=== PATIENT | female | born 1970 | race Caucasian/White ===

== ENCOUNTER 2025-04-21 22:58 | Observation (INO) | payer OTHER, SELFPAY ==
[2025-04-21 17:42] VITALS: BP 170/110
[2025-04-21 18:07] LABS: Hematocrit 44.1 % (37.0-47.0); Hemoglobin 14.8 g/dL (12.0-16.0); Mean Corp Hgb Conc. 33.6 g/dL (33.0-37.0); Mean Corpuscular Volume 92.6 fL (81.0-99.0); Nucleated Red Blood Cells % 0 %; Platelet Count 285 10^3/uL (130-400); Red Cell Dist. Width 12.6 % (11.5-14.5)
[2025-04-21 18:19] LABS: ALT (SGPT) 37 U/L (0-35); AST (SGOT) 39 U/L (14-36); Albumin 4.6 g/dl (3.5-5.0); Alkaline Phosphatase 66 U/L (38-126); Blood Urea Nitrogen 17 mg/dl (7-17); Calcium 9.7 mg/dl (8.4-10.2); Carbon Dioxide 30 mmol/L (22-30); Chloride 105 mmol/L (98-107); Glucose 91 mg/dl (70-99); Potassium 3.3 mmol/L (3.5-5.1); Sodium 140 mmol/L (135-145); Total Protein 7.3 g/dl (6.3-8.2); eGFR > 60.00
[2025-04-21 18:32] LABS: Troponin I 0.037 ng/ml
[2025-04-21 19:22] VITALS: BP 158/96
[2025-04-21 19:23] VITALS: BMI 24.0
[2025-04-21 20:00] VITALS: BP 150/104
--- NOTE | 2025-04-21 20:18 | ED.GENMED ---
History of Present Illness
<Yonny Gresham DO - Last Filed: 04/21/25 20:20>
General
Chief Complaint: Heart Rate Problem
Time Seen by Provider: 04/21/25 19:05
<Kaitlyn Marks PA-C - Last Filed: 04/22/25 00:54>
General
Source: patient and family
Exam Limitations: none
History of Present Illness
History of Present Illness:
Patient is a 55-year-old female with past medical history of hypertension, on lisinopril in the past but stopped it on her own a few months ago, who presents to the emergency department accompanied by her mother for evaluation of palpitations and
tachycardia. Patient reports that she works outside at [employer]. She reports that she was at work around 415 and was standing but not exerting herself when she developed sudden onset of palpitations. Patient checked her smart watch and
it indicated that her heart rate was between 180 and 190 bpm. Patient thought that her symptoms would resolve so she waited a while but eventually called her mother who came to pick her up and bring her to the emergency department. Patient reports
that on arrival to the emergency department, they hooked her up to the EKG machine and she suddenly felt better. She denies any palpitations currently. Patient reports that her heart rate was in the 180s to 190s for approximately 2 hours. Patient
reports that she has had a similar episode a few years ago. She states that she did see a devulcanizer tender and wore a Holter monitor. She believes that they told her that she did have SVT. Patient reports that she did have some bilateral shoulder
pain during the episode which is now resolved. Patient denies that she ever had chest pain or shortness of breath. Patient denies any abdominal pain, nausea, vomiting. Patient denies any recent lower extremity edema. Patient admits that she does
drink a lot of coffee a day, she reports that this was unchanged today. Patient denies that she drank alcohol today. Patient denies that she was exerting herself today but states that she has been under an increased amount of stress lately.
Past History
<Kaitlyn Marks PA-C - Last Filed: 04/22/25 00:54>
Past History
ED Past Medical History: HTN
ED Past Surgical History: None
Social History
Tobacco: Non-smoker
Alcohol: Daily
Drug: None
Review of Systems
<Kaitlyn Marks PA-C - Last Filed: 04/22/25 00:54>
Review of Systems
Allergies reviewed?: Yes
All Other Systems: ROS reviewed and negative except as documented in HPI and ROS
Constitutional: Reports no symptoms
EENT: Reports no symptoms
Respiratory: Reports no symptoms
Cardiac: Reports palpitations
ABD/GI: Reports no symptoms
: Reports no symptoms
Musculoskeletal: Reports no symptoms
Skin: Reports no symptoms
Neurological: Reports no symptoms
Endocrine: Reports no symptoms
Hematologic/Lymphatic: Reports no symptoms
Psychiatric: Reports no symptoms
Phy Exam
<Kaitlyn Marks PA-C - Last Filed: 04/22/25 00:54>
General Physical Exam
General Presentation: well appearing and no apparent distress
General Skin: warm and dry
General Habitus: normal
General Mental: alert
General Hydration: appears well hydrated
ENT Exam
ENT Exam: EOMI, pharynx normal, neck supple and normocephalic
Eye Exam
Eye Exam: PERRL, cornea clear and conjunctiva normal
Cardiovascular Exam
Cardiovascular Exam: regular rate/rhythm, no edema, no murmur and normal peripheral pulses
Pulmonary Exam
Pulmonary Exam: lungs clear, no respiratory distress, no rales, no crackles, no rhonchi, no stridor, no wheezing and no cough
Gastrointestinal Exam
Gastrointestinal Exam: normal bowel sounds, non tender, soft, no organomegaly, no pulsatile mass and non distended
Neurological Exam
Neurological Exam: alert, oriented x3, no motor deficits and speech normal
Musculoskeletal Exam
Musculoskeletal Exam: full ROM and no edema
Skin Exam
Skin Exam: normal color, warm/dry, no rash and no petechia
Psychiatric Exam
Psychiatric Exam: normal mood/affect
Course
<Yonny Gresham, DO - Last Filed: 04/21/25 20:20>
Orders/Labs/Results
Orders:
Orders
04/21/25 17:43
EKG [Electrocardiogram (*1)] Urgent
Reason for Study: Tachycardia
EKG- Treatment ONCE
04/21/25 17:53
Complete Blood Count/With Diff Urgent
Comprehensive Metabolic Panel Urgent
Troponin I Urgent
04/21/25 20:06
Potassium Chloride [KCl] 40 meq PO NOW STA
CR Chest - 2 Views Urgent
Comment:
Reason For Exam: palpitations
04/21/25 20:59
Troponin I Urgent
04/21/25 22:58
Admit/Transfer Patient As Directed
Co-Sign Provider:
Level of Care: Observation services
Assign to:: Telemetry
Physician / Group: melinda waters
Diagnosis: palpitaton
Reason for Telemetry: Arrhythmia
Date to Stop Telemetry: 04/24/25
Time to Stop Telemetry: 11:00
04/21/25 22:59
Code Status As Directed
Resuscitation Status: Full Code
PRN Pain Medication Management As Directed
May give lesser potent ordered pain med per pt: Yes
preference::
Protocol:: Medication orders for pain may be administered in a
manner that supports deferring to patient preference
when the pt is:
- Requesting an ordered lesser potent pain medication.
Least to most potent pain medications are defined
as: acetaminophen < NSAID < tramadol < opioids
(morphine, oxycodone, hydromorphone).
- Requesting a lesser dose of the same medication IF
ORDERED.
- Requesting a less intrusive route of administration
if both routes are prescribed by the provider (PO <
IV).
04/21/25 23:03
Lisinopril [Zestril] 10 mg PO NOW STA
04/21/25 23:08
HYDROmorphone [Dilaudid] 0.5 mg IV Q4HPRN PRN
04/21/25 23:52
Troponin I Q4H
04/24/25 11:00
DC Protocol for Telemetry ONCE
Abnormal Lab Results
04/21/25 04/21/25 04/21/25
17:53 20:59 23:52
MCH 31.1 H pg
(27.0-31.0)
Potassium 3.3 L mmol/L
(3.5-5.1)
AST 39 H U/L
(14-36)
ALT 37 H U/L
(0-35)
Troponin I 0.037 H* ng/ml 0.087 H* D ng/ml 0.098 H* ng/ml
04/21/25 17:53
04/21/25 17:53
Vital Signs
Initial and Last Documented VS:
Initial Vital Signs
Temp Pulse Resp BP Pulse Ox
98.2 F 159 18 170/110 98
04/21/25 17:42 04/21/25 17:42 04/21/25 17:42 04/21/25 17:42 04/21/25 17:42
Last Documented Vital Signs
Temp Pulse Resp BP Pulse Ox
98.2 F 72 14 148/101 98
04/21/25 17:42 04/21/25 23:21 04/21/25 22:36 04/21/25 23:21 04/21/25 22:36
<Kaitlyn Marks PA-C - Last Filed: 04/22/25 00:54>
Orders/Labs/Results
Orders:
Orders
04/21/25 17:43
EKG [Electrocardiogram (*1)] Urgent
Reason for Study: Tachycardia
EKG- Treatment ONCE
04/21/25 17:53
Complete Blood Count/With Diff Urgent
Comprehensive Metabolic Panel Urgent
Troponin I Urgent
04/21/25 20:06
Potassium Chloride [KCl] 40 meq PO NOW STA
CR Chest - 2 Views Urgent
Comment:
Reason For Exam: palpitations
04/21/25 20:59
Troponin I Urgent
04/21/25 22:58
Admit/Transfer Patient As Directed
Co-Sign Provider:
Level of Care: Observation services
Assign to:: Telemetry
Physician / Group: melinda waters
Diagnosis: palpitaton
Reason for Telemetry: Arrhythmia
Date to Stop Telemetry: 04/24/25
Time to Stop Telemetry: 11:00
04/21/25 22:59
Code Status As Directed
Resuscitation Status: Full Code
PRN Pain Medication Management As Directed
May give lesser potent ordered pain med per pt: Yes
preference::
Protocol:: Medication orders for pain may be administered in a
manner that supports deferring to patient preference
when the pt is:
- Requesting an ordered lesser potent pain medication.
Least to most potent pain medications are defined
as: acetaminophen < NSAID < tramadol < opioids
(morphine, oxycodone, hydromorphone).
- Requesting a lesser dose of the same medication IF
ORDERED.
- Requesting a less intrusive route of administration
if both routes are prescribed by the provider (PO <
IV).
04/21/25 23:03
Lisinopril [Zestril] 10 mg PO NOW STA
04/21/25 23:08
HYDROmorphone [Dilaudid] 0.5 mg IV Q4HPRN PRN
04/21/25 23:52
Troponin I Q4H
04/24/25 11:00
DC Protocol for Telemetry ONCE
Abnormal Lab Results
04/21/25 04/21/25 04/21/25
17:53 20:59 23:52
MCH 31.1 H pg
(27.0-31.0)
Potassium 3.3 L mmol/L
(3.5-5.1)
AST 39 H U/L
(14-36)
ALT 37 H U/L
(0-35)
Troponin I 0.037 H* ng/ml 0.087 H* D ng/ml 0.098 H* ng/ml
04/21/25 17:53
04/21/25 17:53
Vital Signs
Initial and Last Documented VS:
Initial Vital Signs
Temp Pulse Resp BP Pulse Ox
98.2 F 159 18 170/110 98
04/21/25 17:42 04/21/25 17:42 04/21/25 17:42 04/21/25 17:42 04/21/25 17:42
Last Documented Vital Signs
Temp Pulse Resp BP Pulse Ox
98.2 F 72 14 148/101 98
04/21/25 17:42 04/21/25 23:21 04/21/25 22:36 04/21/25 23:21 04/21/25 22:36
<Yonny Gresham DO - Last Filed: 04/21/25 20:20>
*Pulse Oximetry
SaO2: 99
Oxygen Mode of Delivery: Room air
<Kaitlyn Marks PA-C - Last Filed: 04/22/25 00:54>
*Pulse Oximetry
Patient hypoxic: no
*Critical Care Note
Total Time (30-74mins, 75-104mins- exclusive of procedures): Not Applicable
<Kaitlyn Marks PA-C - Last Filed: 04/22/25 00:54>
Update Note
Update Note:
Patient is 55-year-old female with past medical history of hypertension not currently on medication who presents to the emergency department for evaluation of 2 hours of palpitations with heart rate readings on her smart watch from the 180s to the
190s. On arrival, patient reported improvement in her symptoms once the EKG leads were placed. On arrival, patient's initial heart rate was 156 bpm, she is afebrile. On my examination, the patient is well-appearing, she is in no acute distress,
she has a normal cardiopulmonary exam. EKG was obtained and demonstrates no acute ischemic changes, no evidence of dysrhythmia, no tachycardia. Labs were obtained and are notable for a slightly low potassium of 3.3, this was repleted. The
remainder of the patient's labs are notable for a troponin of 0.037. Chest x-ray was also obtained and demonstrates no acute disease process. Plan was to obtain second troponin. However, this was elevated even further, therefore the patient will
be admitted for continued trending of troponin, telemetry monitoring, and possibly cardiology consultation. All results and plan were discussed with the patient and her mother who expressed understanding and agreed.
ED Attending Note
<Yonny Gresham DO - Last Filed: 04/21/25 20:20>
ED Attending Note
Patient seen and examined by attending physician: Yes
I performed the substantive portion of visit, reviewed & personally made and approve the management plan that is documented in note by myself or JOYCE.: Yes
ED Attending Note:
Seen with PA examined independently sounds like the patient had an episode of SVT resolved spontaneously, is on lisinopril K slightly low troponin is indeterminant will replete her K, repeat her Trop keep her on a monitor consideration for discharge
home beta-makeda calcium channel makeda cardiology follow-up
-
Portions of this chart may have been created with voice recognition software.� Occasional wrong word or��sound alike� substitutions may have occurred due to the inherent limitations of voice recognition software.
Discharge Plan
Departure
Patient Disposition: Admit
Date of Disposition: 04/21/25
Time of Disposition: 22:19
Presentation/result/management discussed w/ accepting MD/DO: Hospitalist
Patient with high blood pressure during this ER visit?: Yes
Condition: Good
Covid-19: Not Applicable
Discharge Problem:
Palpitations, Elevated troponin
Interventions
Interventions:
*Risk Screen - Suicide Last Done: 04/21/25 17:42
*General Assessment Last Done: 04/21/25 17:42
*Neglect/Abuse Screening Last Done: 04/21/25 17:42
*ED COVID-19 Vaccine History Last Done: 04/21/25 17:42
*ED Influenza Vaccine History Last Done: 04/21/25 17:42
[facility] Risk Assessment Tool Last Done: 04/21/25 19:24
ED- Pulmonary Assessment Last Done: 04/21/25 19:24
ED- Cardiac Assessment Last Done: 04/21/25 19:24
[2025-04-21] MEDS: KCL 40 MEQ PO (20:25)
[2025-04-21 21:00] VITALS: BP 152/96
[2025-04-21 21:36] LABS: Troponin I 0.087 ng/ml
[2025-04-21 22:36] VITALS: BP 148/101
--- NOTE | 2025-04-21 22:41 | HPS.HSE ---
Family Physician
-
Family Physician: Magdi Bonilla
Chief Complaint
-
PALPITATION
History of Present Illness
55-year-old female with past medical history of hypertension, on lisinopril in the past but stopped it on her own a months ago, presented to us with palpitation. patient stated she a had cappuccino drink before the event. she drinks lots of coffee
in the morning. Her heart rate on the watch was 180-190 which lasted for 2 hours. denied chest pain, sob. she felt the heart was racing. denied MICHAEL, dizzy or syncope. denied fever, chills,cough, congestion. denied abdominal pain,nv,,d. denied dysuria
or hematuria.
she got better as soon as she got in the ER room.
Admitted for further management
Medical History
Past Medical History
Past Medical History: Reports Other
Additional Past Medical History:
Anxiety hypercholesteremia, hypertension
Past Surgical History: Reports None
Social History
Tobacco: Former Smoker
Alcohol: Daily
Drug: None
Living: With Family
Employment: Employed
Family History
Family History: Not pertinent
Allergies / Home Medications
Allergies reflects when Allergies were last updated in [employer].
Home Medications with original date entered in [employer]
Allergy/Medication List:
Allergies
Allergy/AdvReac Type Severity Reaction Status Date / Time
NKA - No Known Allergies Allergy Uncoded 09/10/07 20:00
Review of Systems
-
Constitutional: Reports No Symptoms
EENT: Reports No Symptoms
Respiratory: Reports No Symptoms
Cardiac: Reports Palpitations
Abdomen/GI: Reports No Symptoms
: Reports No Symptoms
Musculoskeletal: Reports No Symptoms
Skin: Reports No Symptoms
Neurological: Reports No Symptoms
Endocrine: Reports No Symptoms
Hematologic/Lymphatic: Reports No Symptoms
Psych: Reports No Symptoms
Physical Exam
Vital Signs
Vital Signs
Temp Pulse Resp BP Pulse Ox
98.2 F 73 14 148/101 98
04/21/25 17:42 04/21/25 22:36 04/21/25 22:36 04/21/25 22:36 04/21/25 22:36
Physical Exam
General: Well Developed, Well Nourished and No Apparent Distress
HEENT: NormoCephalic, Moist mucous membranes and Atraumatic
Respiratory: Clear
Cardiac: S1/S2 and Regular Rhythm; No Murmur or Rub
GI: Soft, Non Tender, Non Distended and Normal Bowel Sounds; No Organomegaly
Rectal: Deferred by Provider
Musculoskeletal: No Clubbing, No Cyanosis and No Edema
Skin: No Rash
Neuro: AO x 3 and Nonfocal/grossly intact
Psych: Calm
Laboratory Results
-
04/21/25 17:53
04/21/25 17:53
Laboratory Results
Total Bilirubin 0.4 mg/dl (0.2-1.3) 04/21/25 17:53
AST 39 U/L (14-36) H 04/21/25 17:53
ALT 37 U/L (0-35) H 04/21/25 17:53
Alkaline Phosphatase 66 U/L (38-126) 04/21/25 17:53
Troponin I 0.087 ng/ml H* D 04/21/25 20:59
Data Reviewed
-
Diagnostic Radiology: Report Reviewed by me
Lab Data: Labs Reviewed by me
Impression/Plan
-
# Palpitation resolved
- At home heart rate in 180s, upon arrival 150s
- EKG with impression of normal sinus rhythm
- Will continue to monitor
-tsh in am
# Elevated Trope rule out NSTEMI
- Continue to trend Trope
-will obtain ECHo
-cards consulted
#Hypokalemia
- Potassium 3.3, oral KCl
- BMP in the morning
# Transaminitis likely shock liver secondary to palpitation
- AST 39, ALT 37
-ctm
#DVT prophylaxis
-Lovenox
#CODE status
-full code
--- NOTE | 2025-04-21 22:52 | W.PN.UPDATE ---
Addendum entered and electronically signed by Aaron Perez MD 04/22/25 16:29:
04/22/25 TTE
1. Normal biventricular size and systolic function, mild left ventricular hypertrophy.
2. No significant valve disease.
3. No prior study available for comparison.
Original Note:
Update Note
Progress Note Update
This note serves as an addendum to the H&P by [facility]YE�
HPI�
55F Former smoker, daily a glass of wine use, HX HTN, not currently on medication coz non compliance with Lisinopril 4 weeks ago seen at ER
- pw palpitations and a heart rate between 180-190bpm on her smart watch for about 2 hours.
- on arrival, the patient was hooked up to the EKG machine and before a tracing could be obtained, she reported resolution of her symptoms.
Similar HPI 3 yrs ago
- had Holter monitoring and reports SVT or atrial arrhythmias
FHX: POS for aunt of KS at age of early 50s
Relevant VS
Temp Pulse Resp BP Pulse Ox
98.2 F 73 14 148/101 98
04/21/25 17:42 04/21/25 22:36 04/21/25 22:36 04/21/25 22:36 04/21/25 22:36
PE
Gen: NAD
HEENT: Mosit OM
Neck: supple, No carotid bruit
Lungs: CTA
Cor: RRR S1 S2
Abdomen:�soft NT NG NRT
[employer]: AAO3, NFND
MS: no edema
Psych: Nl mood and affect
Relevant Data
04/21/25 04/21/25
17:53 20:59
Potassium 3.3 L
Creatinine 0.7
eGFR > 60.00
AST 39 H
ALT 37 H
Troponin I 0.037 H* 0.087 H* D
EKG
NORMAL SINUS RHYTHM
POSSIBLE LEFT ATRIAL ENLARGEMENT
INCOMPLETE RIGHT BUNDLE BRANCH BLOCK
LEFT ANTERIOR FASCICULAR BLOCK
MINIMAL VOLTAGE CRITERIA FOR LVH, MAY BE NORMAL VARIANT ( [employer] product )
NONSPECIFIC ST ABNORMALITY
ABNORMAL ECG
NO PREVIOUS ECGS AVAILABLE
NO PRIOR hospitalist admission:
ASSESSMENT & PLAN
Palpitation with rapid HR - presumed SVT by HPI , suspects spontaneously converted to NSR
EKG with NSR
Of Note: Similar HPI 3 yrs ago and had Holter monitoring => reports SVT or atrial arrhythmias but no medications
- TLM Monitor
- ECHO
- IV Metoprolol 5mg q6H PRN for HR > 140
- Resume BP control with Lisinopril
- Correct low K
- CBC card consult
Hypokalemia
- S/P PO KCL 40
- FU K in AM
Elevated and trending up TPNI- suspect NIMI due to palpitation
No acute ischemic changed
POS FHx of aunt of KS at age of early 50s during Carpel tunnel surgery
- Trend TPNI
- ECHO eval for WMAL and LVEF
- await CBC card input
Borderline Transaminitis likely due AILI due to presumed SVT and hypoperfued liver injury
Daily 1 glass of wine use
- Trend LFTs
- Low risk for ETOH WDS
- Observe
Uncontrol HTN
- Non adherence to Lisinopril for 4 weeks
- Resume BP control with Lisinopril 10mg daily - 1st dose tonight
DVT Px: LMWH
Full code
OBS TLM
[2025-04-21] MEDS: ZESTRIL 10 MG PO (23:21)
[2025-04-21 23:55] VITALS: BP 138/85
[2025-04-22 00:36] LABS: Troponin I 0.098 ng/ml
[2025-04-22 07:38] VITALS: BP 145/97
[2025-04-22] MEDS: ZESTRIL 10 MG PO (08:50)
--- NOTE | 2025-04-22 09:19 | CON.CAR ---
Addendum entered and electronically signed by Matteo Matias MD 04/22/25 13:01:
I saw and evaluated the patient, and I provided the substantive portion of the medical decision making.
I reviewed and agree with the note by Marce MORALES and it accurately reflects our care.
I personally performed the medical decision making of the this encounter and my assessment and plan is below:
55-year-old female with a past medical history of hypertension and anxiety who presents for evaluation of sudden onset palpitations yesterday while working. She states her heart rate was around 100 and 890 on her Apple watch for 2-1/2 hours. It
resolved all of a sudden. By the time EKG was done she was back in sinus rhythm. She had a sense of palpitations but no dizziness or chest pain. Currently she is fatigued but feeling well. She does admit that she had been on lisinopril in the
past but stopped taking it. She has not really been taking care of herself due to a busy schedule. Typically she does go to hot works and exercises without issue. Her father did at the age of 56, she is not superclear of the issues around it.
She does not think it was sudden . He also had a sister who had a complication from carpal tunnel syndrome and in her early 50s.
On exam she is a regular rate and rhythm with a normal S1-S2 no murmurs or gallops were appreciated lungs are clear to auscultation bilaterally no acute lower extremity edema.
Labs show troponin of 0.037-0 0.087-0 0.098-0.041. Echocardiogram was normal outside of mild LVH. EKG tracing shows normal sinus rhythm with incomplete right bundle branch block and left anterior fascicular block on admission repeat showed similar
findings except the rate was sinus bradycardia.
Assessment:
Acute palpitations consistent with SVT
Hypertensive urgency
Hypokalemia
Left anterior fascicular block
Nonischemic myocardial injury in the setting of acute hypertension
Plan:
Will arrange for a long-term outpatient monitor. Discussed vagal maneuvers should she have the onset of palpitations again. Would recommend short acting propranolol 10 mg as needed for palpitation. If this did not help she could take the full
tablet which would be 20 mg. If symptoms persist, would recommend outpatient EP study/ablation. Given her age and gender we will check a TSH.
Will should resume lisinopril. Given the presence of hypokalemia will check a renin/Rylan ratio this could be followed up as an outpatient. Goal BP should be less than 130/80 given the LVH.
Echo without regional wall motion abnormality, will recommend outpatient noninvasive testing.
Okay to discharge from a cardiovascular perspective.
Original Note:
Consultation
Consultation Request
Date/Time Consultation Requested: 04/22/25 6a
Date/Time Consultation Performed: 04/22/25 8a
Requesting Provider: CARMEN Chavira
Performing Provider: CARMEN Lorenzo for Dr. Matias
Reason for Consultation: palpitations
Medical History
-
Chief Complaint: palpitations
History of Present Illness:
Mrs. Lao is a 55 yo female with HTN and anxiety, who presents to the ER with c/o palpitations that began yesterday while sitting at work. Her Apple Watch alerted her of heart rates 180s-190s, this lasted to 2.5 hours and resolved when she arrived
to the ER. She is admitted to the hospitalist service and we are consulted for palpitations. Her troponin trend is 0.037, 0.087, 0.098. Currently she denies any cardiac complaints and tele shows NSR. She admits to stopping her Lisinopril a
couple weeks ago, for no clear reason. She was previously seen by [facility], Dr. Blackbrun, in 2019 due to palpitations.
Past Medical History
Past Medical History: Other (as above)
Social History
Tobacco: Former Smoker
Alcohol: Daily (1 glass of wine)
Living: With Family
Employment: Employed
Family History
Family History: Reviewed & Not Pertinent
Allergies / Home Medications
Allergy/AdvReac Type Severity Reaction Status Date / Time
No Known Allergies Allergy Unverified 04/21/25 23:04
�Medication �Instructions �Recorded �Confirmed �Type
lisinopril 10 mg tablet 10 mg PO DAILY 04/21/25 04/21/25 History
Review of Systems
-
History Source: Patient
All other systems: Negative unless noted
Physical Exam
Vital Signs
Temp Pulse Resp BP Pulse Ox
98.2 F 56 19 138/85 95
04/21/25 17:42 04/22/25 02:00 04/22/25 02:00 04/21/25 23:55 04/22/25 02:00
Lab Results
04/21/25 17:53
04/21/25 17:53
Troponin I 0.098 ng/ml H* 04/21/25 23:52
Physical Exam
General: Well Developed and Well Nourished
HEENT: Normocephalic, Anicteric and Moist Mucous Membranes
Respiratory: Clear and Wheezes
Cardiac: S1/S2 and Regular Rhythm
Breast: Deferred by me
GI: Soft, Non Tender, Non Distended and Normal Bowel Sounds
Rectal: Deferred by Provider
Genito-urinary: Clear Urine
Musculoskeletal: No Clubbing, No Cyanosis and No Edema
Skin: Warm and Dry
Neuro: AO x 3
Hematologic/Lymphatic: No Lymphadenopathy
Psych: Calm
Impression / Plan
-
Palpitations - acute while sitting at work, then resolved upon arrival to ER.
- Apple Watch read heart rates 180s-190s for 2.5 hours.
- prior Holter with PVCs in 03/2020, echo 03/2020 with normal LVEF, no valve disease.
- no arrhythmias noted on tele.
- echo completed today, 05/12/25: normal biventricular size/function, EF normal, mild LVH, no sig valve disease
- plan for outpatient 2 week monitor, outpatient stress echo, and PRN propranolol 10mg for palpitations.
Abnormal troponin - acute non-ischemic myocardial injury due to rapid heart rates and HTN on arrival.
- trend troponin to peak.
- echo today was normal, no WMA.
- will check outpatient stress echo.
HTN - improved with Lisinopril, continue.
Anxiety - chronic.
Data Reviewed
-
EKG: Tracing Personally Visualized and interpreted (NSR, ICRBBB, 87 bpm )
Radiology: Report Reviewed by me (cxr - negative)
Medical Tests (Nuc Med, Echo etc): Report Reviewed by me (echo 05/12/25: normal biventricular size/function, mild LVH, no sig valve disease)
Labs: Labs Reviewed by me
Old Records: Reviewed
--- NOTE | 2025-04-22 09:57 | CM ---
Chart reviewed. Spoke with patient at ED bedside
OBS form reviewed with patient
Lives with 2 sons 19 and 22 yo olds in [address] [facility] home
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
Mother can drive her back home
PCP Dr. Magdi Bonilla
RX plan yes
Pharmacy [facility] in [place]
no hx of VN nor SNF
DCP is to go home with no services
Mother can drive her home
Cm will continue to follow up for any dcp needs
[2025-04-22 11:09] VITALS: BP 145/97
[2025-04-22 11:38] LABS: Troponin I 0.041 ng/ml
[2025-04-22 12:22] LABS: TSH 0.76 uIU/ml (0.47-4.68)
--- NOTE | 2025-04-22 15:59 | W.DCSUMMARY ---
Discharge Summary
Discharge Data
Date of Admission: 04/21/25
Date of Discharge: 04/22/25
Total time spent discharging patient (in min): 35
-
Pending Results: No
Hospital Course
Attending physician on day of discharge:
Bindu Ruelas MD
Discharge diagnosis:
SVT
Secondary diagnoses:
HTN
Consultations:
Cardiology
Procedures:
None
Hospital course:
55F with HTN noncompliant with meds, history of PVCs, p/w palpitations, her smart watch read HR between 180-190 for about 2 hours, self resolved without intervention. Echo with normal EF, mild LVH, did not show any RWMA. Seen by cardiology, who
felt this was classic SVT, she was given prescription for propranolol to take as needed palpitations, resumption of her lisinopril, outpatient cardiology referral for further workup, outpatient 2-week monitor, stress echo, possible EP study/ablation.
Physical exam on discharge:
Gen: NAD
HEENT: PERRLA, EOMI, MMM, neck supple
Cards: RRR, no M/G/R
Resp: Lungs CTAB, no W/R/R
GI: soft, NT/ND/NABS
MSK: No edema
Skin: warm and dry, no rash, ulcer or lesions
Heme: No LAD
Psych: Calm
Neuro: AAOx3
Discharge disposition:
Home
Discharge Plan
-
Patient Disposition: Home (Routine Discharge)
Discharge Diagnosis/Procedures: SVT
Diet: Regular
Activity: No restrictions
Driving Restrictions: As prior to admission
Blood Work: Follow up aldosterone/renin levels and ratio
Others Tests: You will have an outpatient stress test arranged by cardiology (if they don't call you, then you call their office)
Referrals:
Magdi Bonilla MD [Family Provider, [facility]]
Dami Mccrary MD [Active, Cardiology]
Additional Discharge Medication Instructions: If you experience palpitations, take half a tablet of propranolol, if no relief take the second half. If still no relief call your doctor. In the event of an emergency, return to the emergency room.
Resume taking your daily lisinopril and do not stop unless advised by a doctor.
Prescriptions:
New
propranolol 20 mg tablet
20 mg PO DAILYPRN PRN (Reason: palpitations) Qty: 30 0RF
Rx Instructions:
Take 1/2 tab PRN palpitations, if no relief, take the other 1/2 tab.
Continued
lisinopril 10 mg tablet
10 mg PO DAILY 30 Days Qty: 30 1RF
Discharge Orders:
Discharge Patient (As Directed); Ordered 04/22/25
Ordered By: Bindu Ruelas
Discharge Date and Time
Discharge Date/Time: 04/22/25 12:58
Print Language: SLOVENIAN
== END 2025-04-22 12:58 | disposition home or self-care (01) ==
LOC: ED 22:58
PROVIDERS: Nurse Practitioner; Physician Assistant Medical; Registered Nurse; ADMITTING PHYSICIAN Internal Medicine; ATTENDING PHYSICIAN Internal Medicine; EMERGENCY PHYSICIAN Emergency Medicine; FAMILY PHYSICIAN Family Medicine; OTHER PHYSICIAN Internal Medicine Cardiovascular Disease
DX: I47.10 Supraventricular tachycardia, unspecified (principal); R00.2 Palpitations; I11.9 Hypertensive heart disease without heart failure; M25.511 Pain in right shoulder; M25.512 Pain in left shoulder; I16.0 Hypertensive urgency; I45.2 Bifascicular block; I5A Non-ischemic myocardial injury (non-traumatic); I07.1 Rheumatic tricuspid insufficiency; R79.89 Other specified abnormal findings of blood chemistry; F41.9 Anxiety disorder, unspecified; E78.00 Pure hypercholesterolemia, unspecified; E87.6 Hypokalemia; R74.01 Elevation of levels of liver transaminase levels; Z87.891 Personal history of nicotine dependence; Z82.49 Family history of ischemic heart disease and other diseases of the circulatory system; Z91.148 Patient's other noncompliance with medication regimen for other reason; Z79.899 Other long term (current) drug therapy; Z86.79 Personal history of other diseases of the circulatory system
CPT/HCPCS: 71046; 80053; 84443; 84484; 85025; 93005; 93306; 99285; G0378